=== PATIENT | male | born 1965 | race Caucasian/White ===

== ENCOUNTER 2016-07-20 16:11 | Observation (INO) | payer OTHER ==
--- NOTE | ~2016-07-20 | PUL ---
[address] [place]. [address] NAME: POLO ROMAN : 63 STATUS : DIS Derian PAT#: [id number] AGE: 51 ADM/REG DATE : 07/20/16 MR#: [id number] REPORT SERV DATE: 07/25/16 DICTATED BY: LORENA LUKE DATE: 07/25/16 REPORT STATUS : Draft TRANSCRIBED BY: MODL DATE: 07/25/16 PULMONARY FUNCTION TEST DIAGNOSIS: Transient ischemic attack. RESULTS: 1. FEV1 of 3.27 L (90% of predicted). 2. FVC 4.26 L (91% of predicted). 3. FEV1/FVC ratio 77%. IMPRESSION: There was no evidence of obstruction. The forced vital capacity is normal. Normal spirogram. PS/MODL Lorena Luke M.D. / [id number] CC: Juliocesar Maravilla MD
--- NOTE | ~2016-07-20 | HP ---
History And Physical [address] [place]. [address] NAME: POLO ROMAN : 63 STATUS : ADM Derian PAT#: [id number] AGE: 51 ADM/REG DATE : 07/20/16 MR#: [id number] REPORT SERV DATE: 07/21/16 DICTATED BY: NIKUNJ PALOMINO DATE: 07/20/16 REPORT STATUS : Draft TRANSCRIBED BY: MODStephanie DATE: 07/20/16 DATE OF ADMISSION: 07/20/2016 CHIEF COMPLAINT: A 51-year-old male, presenting with ataxia, vertigo, nausea, falls, and confusion. HISTORY OF PRESENT ILLNESS: The patient's history was obtained through careful interview with the patient and coupled with review of [facility] medical records. The patient first began to develop ataxia, confusion, and neurological symptoms about two years ago. He was hospitalized at [facility] in 06/2014. He was told he had a "stroke" and was placed on Plavix. 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 He has intermittent memory problems, sometimes will lose memory for days at a time he states. He also has ataxia with frequent falls, but they have really progressed over these last few weeks. Over the last three or four days, he has developed intermittent vertigo with nausea, but no vomiting. He claims sometimes he has blurry vision, but it has been a gradual onset as well. No double vision. No hemiparesis. He does have exertional lightheadedness, panic attacks, dyspnea on exertion, but no cough. He states that he gets some mild occasional headache that he attributes to being a "tension and stress" headache, not too severe though. No chest pain. No palpitations. A mild chronic nonproductive cough. REVIEW OF SYSTEMS: Otherwise, a 14-point review of systems was obtained and was negative. PAST MEDICAL HISTORY: 1. Stroke (?) 06/2014 at [facility]. 2. Elevated cholesterol. 3. Hypertension. 4. Chronic pain management. 5. No cardiac disease. No lung disease. History And Physical [address] [address] NAME: POLO ROMAN : 63 STATUS : ADM Derian PAT#: [id number] AGE: 51 ADM/REG DATE : 07/20/16 MR#: [id number] REPORT SERV DATE: 07/21/16 DICTATED BY: NIKUNJ PALOMINO DATE: 07/20/16 REPORT STATUS : Draft TRANSCRIBED BY: NAV DATE: 07/20/16 PAST SURGICAL HISTORY: Hernia repair. ALLERGIES: NO KNOWN DRUG ALLERGIES. SOCIAL HISTORY: No tobacco abuse. No alcohol abuse. He is . 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 He lives in [place], [place]. Has two step children, one adopted daughter. He dips snuff. FAMILY HISTORY: COPD, cancer. No stroke. CURRENT MEDICATIONS: Include Xanax 1 mg at bedtime as needed, Lipitor 40 mg p.o. daily, Plavix 75 mg p.o. daily, ibuprofen p.r.n., Keppra 500 mg p.o. daily, lisinopril 10 mg p.o. daily, Flomax 0.4 mg p.o. daily, and verapamil extended release 120 mg p.o. daily. PHYSICAL EXAMINATION: VITAL SIGNS: Temperature 97.6, pulse 100, blood pressure 115/81, respiratory rate 16, and O2 saturation 97% on room air. GENERAL: A pleasant, cooperative male. No evidence of acute distress. NEUROLOGICAL: Cranial nerves 2-12 are intact and symmetrical. The patient has 5/5 strength in upper and lower extremities that is symmetrical. HEENT: Pupils equal, round, and reactive to light. No conjunctival pallor. No scleral icterus. Nares are patent. Oropharynx is clear of obstruction. Moist mucous membranes. NECK: Trachea midline. No thyromegaly. LYMPH: No cervical lymphadenopathy. No supraclavicular lymphadenopathy. RESPIRATORY: Clear to auscultation at bases. No wheezes, rales, or rhonchi. Normal respiratory effort. CARDIOVASCULAR: Tachycardic, regular rhythm. No murmurs, rubs, or gallops. No extremity edema is appreciated. ABDOMEN: Soft, nontender, nondistended. Normal bowel sounds auscultated throughout. No hepatosplenomegaly. DERMATOLOGICAL: Warm and dry extremities. No pallor. No cyanosis. PSYCHIATRIC: Normal affect. Good mood. Alert and oriented x3. Sometimes acts as if he is anxious. LABORATORY DATA: White blood cell count 7.8, hemoglobin 14, hematocrit 41, and platelets 313. Sodium 135, potassium 4.1, chloride 105, bicarb 25, BUN 14, creatinine 0.94, glucose 95. Troponin negative. INR 1.0. Liver enzymes within normal limits. Urinalysis negative. STUDIES: 1. Chest x-ray by my own evaluation shows no acute cardiopulmonary process. 2. EKG by my own evaluation shows sinus rhythm, no major abnormalities otherwise. 3. CT scan of the brain without contrast shows no acute intracranial process. ASSESSMENT AND PLAN: 1. 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 We will request records from [facility] of 2014. Check an MRI with contrast of the brain. Check an MRA. Check fasting lipid panel. Check telemetry. Continue Plavix. Perhaps, History And Physical [address] [place]. [address] NAME: POLO ROMAN : 63 STATUS : ADM Derian PAT#: [id number] AGE: 51 ADM/REG DATE : 07/20/16 MR#: [id number] REPORT SERV DATE: 07/21/16 DICTATED BY: NIKUNJ PALOMINO DATE: 07/20/16 REPORT STATUS : Draft TRANSCRIBED BY: NAV DATE: 07/20/16 presentation is not consistent with ischemic disease (?). Consider in the differential diagnosis abnormalities as multi systems atrophy, multiple sclerosis, or some other kind of neurological cerebellar ataxia condition (?). We will obtain Neurology consult to help guide evaluation and diagnosis. 2. Dyspnea but a negative exam and negative chest x-ray. Check an echocardiogram. Check pulmonary function tests. KPL/MODL Nikunj Palomino M.D. / [id number] CC: Juliocesar Maravilla N.P.
--- NOTE | ~2016-07-20 | DS ---
Discharge Summary [facility] [address] [place]. [address] NAME: POLO ROMAN : 63 STATUS : DIS Derian PAT#: [id number] AGE: 51 ADM/REG DATE : 07/20/16 MR#: [id number] REPORT SERV DATE: 07/22/16 DICTATED BY: JAVIER SNOW DATE: 07/21/16 REPORT STATUS : Draft TRANSCRIBED BY: MODL DATE: 07/21/16 ADMISSION DATE: 07/20/2016 DISCHARGE DATE: 07/21/2016 PRINCIPAL DIAGNOSIS: Chronic vertigo. SECONDARY DIAGNOSES: Confusion associated with methadone dependence, ataxia. HISTORY PRESENT ILLNESS: Please see Dr. Noble's dictation 07/20/2016. HOSPITAL COURSE: Admitted with confusion and ataxia. The patient, however, had been on methadone, and after not receiving it on the morning of 07/21/2016, he actually did not have any further confusion. He did continue to have issues with vertigo particularly upon turning of his head. No nystagmus is identified. He did have some impairment in his finger nose test. He is instructed to continue the weaning for the methadone at the previous clinic. Recommended ear drops for his right ear which was impacted with wax and then follow up with the [facility] for ongoing gait training regarding the chronic vertigo which may or may not be associated with Meniere disease. He did have 60% hearing loss in his left ear. [facility] DICTATED BY: Juliocesar Maravilla/NAV Javier Snow M.D. / [id number] CC: Juliocesar Maravilla MD
[2016-07-20 13:29] LABS: BASOPHILS 0.3 %; BASOPHILS ABSOLUTE 0.02 10/3/uL (0.0-0.16); EOSINOPHILS 1.2 %; EOSINOPHILS ABSOLUTE 0.09 10/3/uL (0.0-0.53); ER CBC TAT 0 Hrs 03 Mins; HEMOGLOBIN 14.2 g/dL (13.6-17.8); IMMATURE GRANULOCYTES 0.3 %; IMMATURE GRANULOCYTES ABSOLUTE 0.02 10/3/uL (0.0-0.11); LYMPHOCYTES 33.7 %; LYMPHOCYTES ABSOLUTE 2.62 10/3/uL (0.67-4.30); MEAN CORPUS HGB CONC 34.7 g/dL (32.0-36.0); MEAN PLATELET VOLUME 9.2 fL (9.2-13.0); MONOCYTES 9.6 %; MONOCYTES ABSOLUTE 0.75 10/3/uL (0.21-1.20); NEUTROPHILS 54.9 %; NEUTROPHILS ABSOLUTE 4.28 10/3/uL (2.02-8.40); PLATELET COUNT 313 10/3/uL (150-400); RBC DISTRIBUTION WIDTH 13.2 % (12.0-16.0); WHITE BLOOD CELLS 7.8 10/3/uL (4.5-10.5)
[2016-07-20 13:30] LABS: HEMATOCRIT 40.9 % (40.0-51.0); MANUAL DIFF NO %; MEAN CORPUSCULAR HEMOGLOB 33.5 pg (26.0-34.0); MEAN CORPUSCULAR VOLUME 96.5 fL (80-100); RED CELL COUNT 4.24 10/6/uL (4.7-6.1)
[2016-07-20 13:46] LABS: ASCORBIC ACID (UR NOT ORDER) NEG (NEG); BILIRUBIN, URINE NEGATIVE (NEG); ER URINALYSIS TAT 0 Hrs 16 Mins; KETONE, URINE NEGATIVE (NEG); LEUKOCYTE ESTERASE(NOT OR NEG (NEG); NITRITE (URINE) NEG (NEG); WBC (NOT ORDERED) (RFLEX) 1 (0-5)
[2016-07-20 13:47] LABS: A/G RATIO 1.6 (0.7-1.9); ALBUMIN 4.6 G/DL (3.5-5.0); ALKALINE PHOSPHATASE 70 U/L (45-117); BUN (BLOOD UREA NITROGEN) 14 MG/DL (6-23); CALCIUM, SERUM 9.4 MG/DL (8.5-10.4); CHLORIDE, SERUM 105 MMOL/L (96-112); CO2 (CARBON DIOXIDE) 25 MMOL/L (24-34); CREATININE 0.94 MG/DL (0.70-1.30); GFR AFRICAN AMERICAN 108 ML/MIN (>=60); GFR NON AFRICAN AMERICAN 93 ML/MIN (>=60); GLOBULIN 2.8 G/DL (2.5-4.1); GLUCOSE, SERUM 95 MG/DL (60-99); POTASSIUM, SERUM 4.1 MMOL/L (3.5-5.3); SGOT(AST) 18 U/L (5-40); SGPT(ALT) 26 U/L (5-65); SODIUM, SERUM 135 MMOL/L (135-148); TOTAL BILIRUBIN 0.4 MG/DL (0-1.2); TOTAL PROTEIN 7.4 G/DL (6.0-8.5); TROPONIN I <0.02 NG/ML (<0.05)
[2016-07-20 15:46] LABS: PARTIAL THROMBO TIME 29.2 SEC (22.5-37.2); PROTIME (NOT ORD) 13.1 SEC (12.0-14.5)
[~2016-07-20 16:11] MED LIST: FLOMAX4 PO; IBU400 PO; ISOPTIN SR120 MG PO; KEPPRA500 PO; LIPITOR40 PO; PLAVIX PO; PRIN10 PO; XANAX1 MG PO
[2016-07-21 04:30] LABS: BASOPHILS 0.1 %; BASOPHILS ABSOLUTE 0.01 10/3/uL (0.0-0.16); EOSINOPHILS 2.2 %; EOSINOPHILS ABSOLUTE 0.17 10/3/uL (0.0-0.53); HEMATOCRIT 39.9 % (40.0-51.0); HEMOGLOBIN 13.6 g/dL (13.6-17.8); IMMATURE GRANULOCYTES 0.3 %; IMMATURE GRANULOCYTES ABSOLUTE 0.02 10/3/uL (0.0-0.11); LYMPHOCYTES 35.7 %; LYMPHOCYTES ABSOLUTE 2.82 10/3/uL (0.67-4.30); MEAN CORPUS HGB CONC 34.1 g/dL (32.0-36.0); MEAN CORPUSCULAR HEMOGLOB 33.3 pg (26.0-34.0); MEAN CORPUSCULAR VOLUME 97.6 fL (80-100); MEAN PLATELET VOLUME 9.5 fL (9.2-13.0); MONOCYTES 10.1 %; NEUTROPHILS 51.6 %; NEUTROPHILS ABSOLUTE 4.08 10/3/uL (2.02-8.40); PLATELET COUNT 255 10/3/uL (150-400); RBC DISTRIBUTION WIDTH 13.4 % (12.0-16.0); RED CELL COUNT 4.09 10/6/uL (4.7-6.1); WHITE BLOOD CELLS 7.9 10/3/uL (4.5-10.5)
[2016-07-21 04:32] LABS: MANUAL DIFF NO %
[2016-07-21 04:37] LABS: PARTIAL THROMBO TIME 29.4 SEC (22.5-37.2)
[2016-07-21 04:53] LABS: A/G RATIO 1.5 (0.7-1.9); ALKALINE PHOSPHATASE 64 U/L (45-117); BUN (BLOOD UREA NITROGEN) 16 MG/DL (6-23); CALCIUM, SERUM 9.2 MG/DL (8.5-10.4); CHLORIDE, SERUM 105 MMOL/L (96-112); CHOL/HDL RATIO(NOT ORDER) 7.7 (0-5); CHOLESTEROL 253 MG/DL (< 200); CO2 (CARBON DIOXIDE) 28 MMOL/L (24-34); CREATININE 0.81 MG/DL (0.70-1.30); GFR AFRICAN AMERICAN 118 ML/MIN (>=60); GFR NON AFRICAN AMERICAN 102 ML/MIN (>=60); GLOBULIN 2.6 G/DL (2.5-4.1); GLUCOSE, SERUM 89 MG/DL (60-99); HDL CHOLESTEROL 33 MG/DL (> 39); LDL CHOLESTEROL 146 MG/DL (< 130); NON-HDL CHOLESTEROL 220 MG/DL (< 160); POTASSIUM, SERUM 3.7 MMOL/L (3.5-5.3); SGOT(AST) 14 U/L (5-40); SGPT(ALT) 23 U/L (5-65); SODIUM, SERUM 139 MMOL/L (135-148); TOTAL BILIRUBIN 0.3 MG/DL (0-1.2); TOTAL PROTEIN 6.6 G/DL (6.0-8.5); TRIGLYCERIDE 370 MG/DL (< 150); TROPONIN I <0.02 NG/ML (<0.05); ULTRASENSITIVE TSH 0.854 MCIU/ML (0.358-3.740)
[2016-07-21 05:03] LABS: CK-MB 0.8 NG/ML; CPK 50 U/L (0-200)
== END 2016-07-21 16:21 | disposition home or self-care (01) ==
LOC: ER 16:11 → CDU1 19:20
PROVIDERS: Emergency Medicine; Internal Medicine
DX: R42 Dizziness and giddiness (principal); F11.20 Opioid dependence, uncomplicated; R41.0 Disorientation, unspecified; T40.2X5A Adverse effect of other opioids, initial encounter; I10 Essential (primary) hypertension; F41.0 Panic disorder [episodic paroxysmal anxiety]; F12.90 Cannabis use, unspecified, uncomplicated; Z83.6 Family history of other diseases of the respiratory system; Z80.9 Family history of malignant neoplasm, unspecified; Z79.02 Long term (current) use of antithrombotics/antiplatelets; Z79.899 Other long term (current) drug therapy; Z98.890 Other specified postprocedural states
CPT/HCPCS: 70450; 70544; 70548; 70553; 71020; 80053; 80061; 80177; 81001; 82550; 82553; 83036; 83735; 84443; 84484; 85025; 85610; 85730; 87040; 93005; 93306; 94010; 96374; 97161-GP; 97165-GO; 99285; A9270-GY; A9577; G0378